=== PATIENT | male | born 1940 | race Hispanic/Latino ===

== ENCOUNTER → 2017-08-11 | Outpatient (CLI) | payer OTHER ==
[~2017-08-11] MED LIST: ACET325T51 PO; ASPI-1005 PO; ATOR40TA28 PO; LOSA25TA21 PO; METF500T6 PO; PIOG30TA26 PO; ROPI0.5T5 PO
== END | disposition home or self-care (01) ==
LOC: RAH 09:24
PROVIDERS: ATTEND Internal Medicine
DX: M17.11 Unilateral primary osteoarthritis, right knee (principal)
CPT/HCPCS: 73562

== ENCOUNTER → 2017-10-21 | Outpatient (CLI) | payer OTHER ==
[~2017-10-21] MED LIST changes: +REGADENOSON 0.4 MG/5 ML PF SYG IVP ONE
== END | disposition home or self-care (01) ==
LOC: SHCH 08:02
PROVIDERS: ATTEND Internal Medicine Cardiovascular Disease
DX: I25.119 Atherosclerotic heart disease of native coronary artery with unspecified angina pectoris (principal); I25.2 Old myocardial infarction
CPT/HCPCS: 78452; 93017; 96374; A9500 ×2; J2785

== ENCOUNTER 2019-03-21 06:38 | Observation (INO) | payer OTHER, MEDICARE ==
[2019-03-20 16:36] LABS: BASOPHILS % (AUTO) 0.6 % (0.0-5.0); EOSINOPHILS % (AUTO) 3.2 % (0.0-8.0); LYMPHOCYTES % (AUTO) 33.2 % (21.0-51.0); MEAN CORPUSCULAR HEMOGLOBIN 31.2 pg (27.0-33.0); MEAN CORPUSCULAR HGB CONC 33.3 g/dL (32.0-36.0); MEAN CORPUSCULAR VOLUME 93.7 fL (79-99); MONOCYTES % (AUTO) 6.3 % (3.0-13.0); NEUTROPHILS % (AUTO) 56.7 % (40.0-77.0); PLATELET COUNT (AUTO) 230 K/uL (130-400); RED BLOOD CELL COUNT(AUTO) 4.16 MIL/uL (4.50-6.20); RED CELL DISTRIBUTION WIDTH 15.1 % (11.0-15.5); WHITE BLOOD COUNT (AUTO) 7.6 K/uL (4.8-10.8)
[2019-03-20 16:37] LABS: APPEARANCE,URINE Clear (CLEAR); BILIRUBIN,URINE Negative (NEGATIVE); COLOR,URINE Yellow (YELLOW); GLUCOSE, URINE (UA) Negative (NEGATIVE); KETONES,URINE Negative (NEGATIVE); LEUKOCYTE ESTERASE ,URINE Negative (NEGATIVE); NITRATE,URINE Negative (NEGATIVE); OCCULT BLOOD,URINE Negative (NEGATIVE); PROTEIN,URINE Negative (NEGATIVE)
[2019-03-20 16:45] LABS: CREATININE 0.9 mg/dL (0.5-1.5); POTASSIUM 4.3 mmol/L (3.5-5.1)
[2019-03-20 16:48] LABS: INR 0.97 (0.85-1.15); PROTHROMBIN TIME 10.2 SEC (9.6-11.6)
[2019-03-20 16:50] VITALS: BP 162/84
--- NOTE | 2019-03-20 18:46 | NUR ---
REPORTED TO DR. WILLAMS, PT HAS CURRENTLY BEEN TAKING MEDICATION DICLOFENAC DAILY, LAST DOSE TAKEN YESTERDAY. NO NEW ORDERS, OK TO PROCEED.
[2019-03-21] VITALS (20 sets, daily range): BP systolic 99–167; BP diastolic 54–90
[~2019-03-21] VITALS: Ht 176.5 cm; Wt 95.5 kg
[~2019-03-21 06:38] MED LIST changes: -ACET325T51 PO; -ASPI-1005 PO; -ATOR40TA28 PO; +DICLOFENAC PO; +ESCI10TA54 PO; -LOSA25TA21 PO; +LOSA25TA41 PO; +METF-444 PO; -METF500T6 PO; -PIOG30TA26 PO; -REGADENOSON 0.4 MG/5 ML PF SYG IVP ONE; -ROPI0.5T5 PO
[2019-03-21] MEDS ORDERED: CEFAZOLIN SODIUM 1 GM VIAL ONE ×2 (06:46→08:07)
[2019-03-21] MEDS ORDERED: SODIUM CHLORIDE 0.9% 10 ML VIAL ONE (06:46)
[2019-03-21] MEDS ORDERED: SODIUM CHLORIDE 0.9% 1000ML 1,000 ML IV ONE (07:07)
[2019-03-21] MEDS ORDERED: CEFAZOLIN SODIUM 1 GM VIAL IVP ONE (08:00)
[2019-03-21] MEDS ORDERED: TRANEXAMIC ACID 1000MG/10ML IV ONE ×2 (08:07→14:13)
[2019-03-21] MEDS ORDERED: ACETAMINOPHEN 325 MG TAB ONE (08:27)
[2019-03-21] MEDS ORDERED: KETOROLAC TROMETHAMINE 15MG/ML ONE (08:28)
[2019-03-21] MEDS ORDERED: OXYCODONE HCL 10 MG TAB.SR.12H PO ONE (08:29)
[2019-03-21] MEDS ORDERED: CELECOXIB 200 MG CAP ONE (08:29)
[2019-03-21] MEDS ORDERED: FENTANYL CITRATE PF 50 MCG/1 ML 2ML VIAL ONE ×2 (10:19→12:38)
[2019-03-21] MEDS ORDERED: ROCURONIUM 10MG/1ML SYR 10 MG/ML ML ONE ×2 (10:19→12:35)
[2019-03-21] MEDS ORDERED: LIDOCAINE PF 2% 5ML ABBOJECT ONE (10:19)
[2019-03-21] MEDS ORDERED: MIDAZOLAM HCL 1 MG/ML 2ML VIAL ONE (10:19)
[2019-03-21] MEDS ORDERED: PROPOFOL 10 MG/ML 20ML VIAL IV ONE (10:19)
[2019-03-21] MEDS ORDERED: EPHEDRINE SULFATE 50 MG/ML AMPULE ONE (11:46)
[2019-03-21] MEDS ORDERED: DEXAMETHASONE SOD PHOSPHATE 10MG/ML 1ML VIAL ONE (12:39)
[2019-03-21] MEDS ORDERED: ONDANSETRON HCL 4 MG/2 ML VIAL ONE (12:39)
[2019-03-21] MEDS ORDERED: CEFAZOLIN SODIUM 1 GM VIAL IRRIG ONE (12:40)
[2019-03-21] MEDS: SODIUM CHLORIDE 0.9% 1000ML 1,000 ML IV SCH (13:46)
[2019-03-21] MEDS ORDERED: OXYCODONE HCL 5 MG TAB PO PRN (14:00)
[2019-03-21] MEDS ORDERED: POTASSIUM CHLORIDE 20 MEQ ERTAB PO PRN (14:00)
[2019-03-21] MEDS ORDERED: POTASSIUM CHLORIDE 10% ELIXIR 20 MEQ/15 ML UDCUP PO PRN (14:00)
[2019-03-21] MEDS ORDERED: ONDANSETRON HCL 4 MG/2 ML VIAL IVP PRN (14:00)
[2019-03-21] MEDS ORDERED: TRAMADOL HCL 50 MG TABLET PO PRN (14:00)
[2019-03-21] MEDS ORDERED: LIDOCAINE HCL-MPF 1% 2ML VIAL IV PRN (14:00)
[2019-03-21] MEDS ORDERED: CALCIUM CARBONATE 500 MG TABLET PO PRN (14:00)
[2019-03-21] MEDS ORDERED: FERROUS FUMARATE 324 MG TABLET PO PRN (14:00)
[2019-03-21] MEDS ORDERED: POTASSIUM CHLORIDE 20MEQ/100ML 100 ML IV PRN (14:00)
[2019-03-21] MEDS ORDERED: KETOROLAC TROMETHAMINE 15MG/ML IV PRN (14:00)
[2019-03-21] MEDS ORDERED: TEMAZEPAM 15 MG CAPSULE PO PRN (14:00)
[2019-03-21] MEDS ORDERED: DiphenhydrAMINE HCL 50 MG/ML VIAL IVP PRN (14:00)
[2019-03-21] MEDS: ACETAMINOPHEN EXTRA STRENGTH 500 MG TABLET PO SCH ×2 (14:00→20:43)
[2019-03-21] MEDS ORDERED: GLYCOPYRROLATE 1 MG/5 ML SYRINGE ONE (14:04)
[2019-03-21] MEDS ORDERED: NEOSTIGMINE 5MG/5ML SYR IV ONE (14:04)
[2019-03-21] MEDS ORDERED: MEPERIDINE-PF 25 MG/ML SYG ONE (14:21)
[2019-03-21] MEDS ORDERED: MORPHINE SULFATE 4 MG/1ML SYG ONE (14:29)
[2019-03-21] MEDS: INSULIN HUMULIN R 100 UNIT/ML 3ML SQ SCH ×2 (16:30→20:37)
--- NOTE | 2019-03-21 17:18 | NUR ---
INITIAL AND REFERRAL MET W PATIENT AND SPOUSE S/P TKA, HOME SAFE AND ACCESSIBLE, PT USES CANE OCCAISIONALLY, WILL NEED WKR AND/ CHAIR DAUGHTER TO PROVIDE TRANSPORT REFERRAL TO [facility] DISCUSSED, [facility]ARCO, REFERRAL FAXED, WILL FOLLOW UP IN AM
[2019-03-21] MEDS: CEFAZOLIN SODIUM 1 GM VIAL IVP SCH (18:13)
[2019-03-21] MEDS: CELECOXIB 200 MG CAP PO SCH (20:39)
[2019-03-21] MEDS: PREGABALIN 25 MG CAP PO SCH (20:39)
[2019-03-21] MEDS: FAMOTIDINE 20MG TAB 20 MG TAB PO SCH (20:39)
[2019-03-21] MEDS: ASPIRIN 325 MG TABLET PO SCH (20:39)
[2019-03-21] MEDS: OXYCODONE HCL 5 MG TAB PO PRN (20:42)
[2019-03-21] MEDS ORDERED: METFORMIN HCL 500 MG TABLET PO SCH (21:00)
--- NOTE | 2019-03-22 | NUR ---
URINARY RETENTION UNABLE TO VOID, BLADDER SCANNER SHOWING 800CC IN BLADDER, STRAIGHT CATHETER SIZE 16 USING ASEPTIC TECHNIQUE, OBTAINED 1000CC OF CLEAR YELLOW URINE, TOLERATED WELL
[2019-03-22] MEDS: SODIUM CHLORIDE 0.9% 1000ML 1,000 ML IV SCH (00:30)
[2019-03-22] MEDS: CEFAZOLIN SODIUM 1 GM VIAL IVP SCH (03:22)
[2019-03-22 04:00] VITALS: BP 111/55
[2019-03-22] MEDS: ACETAMINOPHEN EXTRA STRENGTH 500 MG TABLET PO SCH ×2 (05:09→15:33)
[2019-03-22 05:33] LABS: HEMATOCRIT 30.3 % (42-54); MEAN CORPUSCULAR HGB CONC 33.8 g/dL (32.0-36.0); MEAN CORPUSCULAR VOLUME 94.8 fL (79-99); PLATELET COUNT (AUTO) 200 K/uL (130-400); RED CELL DISTRIBUTION WIDTH 14.9 % (11.0-15.5); WHITE BLOOD COUNT (AUTO) 9.6 K/uL (4.8-10.8)
[2019-03-22] MEDS: INSULIN HUMULIN R 100 UNIT/ML 3ML SQ SCH ×2 (05:53→11:30)
[2019-03-22 05:55] LABS: CREATININE 1.2 mg/dL (0.5-1.5); POTASSIUM 4.8 mmol/L (3.5-5.1)
[2019-03-22 08:00] VITALS: BP 109/52
[2019-03-22] MEDS: FAMOTIDINE 20MG TAB 20 MG TAB PO SCH (08:10)
[2019-03-22] MEDS: ASPIRIN 325 MG TABLET PO SCH (08:10)
[2019-03-22] MEDS: CELECOXIB 200 MG CAP PO SCH (08:10)
[2019-03-22] MEDS: PREGABALIN 25 MG CAP PO SCH (08:10)
[2019-03-22] MEDS: OXYCODONE HCL 5 MG TAB PO PRN ×2 (08:15→12:34)
[2019-03-22] MEDS ORDERED: LOSARTAN 50 MG TABLET PO SCH (09:00)
[2019-03-22] MEDS ORDERED: TAMSULOSIN HCL 0.4 MG CAP.ER.24H PO SCH (09:00)
[2019-03-22] MEDS ORDERED: POLYETHYLENE GLYCOL 3350 17 GM POWD.PACK PO SCH (09:00)
[2019-03-22] MEDS: Escitalopram Oxalate 10 MG PO SCH (09:00)
[2019-03-22] MEDS ORDERED: METFORMIN HCL 500 MG TABLET PO SCH (09:00)
[2019-03-22 12:00] VITALS: BP 95/53
--- NOTE | 2019-03-22 14:21 | NUR ---
CALL TO DR. WILLAMS TO CLARIFY IF PT WILL BE DISCHARGED AND TO CONFIRM THAT HH HAS BEEN SET UP AND DME IS IN THE ROOM
[2019-03-22] MEDS ORDERED: ASPI-1012 PO (15:46)
[2019-03-22] MEDS ORDERED: HYDR-4457 PO (15:46)
--- NOTE | 2019-03-22 18:55 | NUR ---
LATE DISCHARGE DISCHARGE TEACHING DONE WITH PATIENT AND FAMILY USING TEACHBACK METHOD, VERBALIZED UNDERSTANDING. NO NOTED SOB OR DISTRESS. NEW MEDICATION ADMINISTRATION TEACHING DONE WITH PATIENT, VERBALIZED UNDERSTANDING. PT AWARE OF NEED TO SET UP APPOINTMENT WITH DR. WILLAMS. DRESSING TO KNEE DRY AND INTACT. DRESSING CHANGED PER DR. WILLAMS, INCISION IS DRY AND INTACT. DRESSING TEACHING DONE WITH PATIENT, VERBALIZED UNDERSTANDING. IV REMOVED, CATH TIP INTACT. PENDING TO BE TRANSFERRED OUT VIA PRIVATE VEHICLE. REPORT CALLED TO HOME HEALTH.
[2019-03-24] MEDS ORDERED: BISACODYL 10 MG SUPP.RECT RC PRN (14:00)
== END 2019-03-22 19:00 | disposition home health service (06) ==
LOC: DAH 06:38 → DAHIP 06:39 → 4AH 14:16
PROVIDERS: ADMIT Orthopaedic Surgery; ATTEND Orthopaedic Surgery
DX: M17.11 Unilateral primary osteoarthritis, right knee (principal); I10 Essential (primary) hypertension; E78.2 Mixed hyperlipidemia; M19.90 Unspecified osteoarthritis, unspecified site; Z83.3 Family history of diabetes mellitus; Z79.01 Long term (current) use of anticoagulants
CPT/HCPCS: 27447; 36415 ×2; 80048 ×2; 81003; 82948 ×5; 85025; 85027; 85610; 87641; 88304; 88311; 96374; 96375; 96376; 97039; 97116 ×2; 97161; 97530 ×2; A4344; A4600; A4606; A4649 ×6; A4930 ×2; A5120; A6219; C1763; C1776; G0168; G0378 ×29; G8978; G8979; G8980; G8981; G8982; G8983; J0690 ×5; J1100; J1815; J1885 ×2; J2001; J2175; J2250; J2270; J2405; J2704; J2710; J3010 ×2; J3490 ×4; J7030; J7120

== ENCOUNTER → 2019-06-22 | Outpatient (CLI) | payer OTHER, MEDICARE ==
[~2019-06-22] MED LIST changes: +ASPI-1012 PO; -DICLOFENAC PO; +HYDR-4457 PO
== END | disposition home or self-care (01) ==
LOC: RAH 14:55
PROVIDERS: ATTEND Internal Medicine
DX: M19.072 Primary osteoarthritis, left ankle and foot (principal)
CPT/HCPCS: 73630